=== PATIENT | female | born 1960 | race Caucasian/White ===

== ENCOUNTER 2017-01-28 19:53 | Emergency (ER) | payer OTHER ==
[2017-01-28] MEDS ORDERED: Sodium Chloride 0.9% 1000 ML 1,000 ML IV STA (20:19)
--- NOTE | 2017-01-28 20:22 | ERPHSYRPT ---
- History of Present Illness Time Seen by Provider: 01/28/17 20:08 Historian: patient, family () Exam Limitations: no limitations Patient Subjective Stated Complaint: Pt sts ate red lobster tonight, sts that approx 45 min after eating she projectile vomited and then had diarrhea. Sts pain is now diffusely cramping, rating pain 4/10. No recent sick contacts. Sts vomited x 4, diarrhea x 1. Sts feels like tongue, lips numb after epidose. Has never had this happen before. Eats seafood all the time. Triage Nursing Assessment: Pt alert, oriented, answers all questions appropriately. Skin pink, warm, dry. Ambulatory to tx room, steady gait noted. No obvious lip, facial, tongue swelling. 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 PT DENIES CHEST PAIN, DYSURIA, HEADACHE. Allergies/Adverse Reactions: Penicillins Allergy (Mild, Verified 01/28/17 20:01) Rash Quinolones Allergy (Mild, Verified 01/28/17 20:01) Rash Home Medications: Cholecalciferol (Vitamin D3) [Vitamin D3] 5,000 unit PO DAILY 01/28/17 [History] Citalopram Hydrobromide [ceLEXa] 40 mg PO DAILY 01/28/17 [History] Estradiol [Estrace] 0.5 mg PO DAILY 01/28/17 [History] Imipramine HCl [Tofranil] 50 mg PO DAILY 01/28/17 [History] Lisinopril 10 mg [Zestril 10 MG] 10 mg PO DAILY 01/28/17 [History] Omeprazole [Prilosec] 20 mg PO BID 01/28/17 [History] Immunizations Up to Date: Yes - Review of Systems Cardiac: No Chest Pain Abdominal/Gastrointestinal: Abdominal Pain, Vomiting, Diarrhea Genitourinary Symptoms: No Dysuria Neurological: Sensory Changes (TINGLING IN HANDS, FEET, LIPS.) All Other Systems: Reviewed and Negative - Past Medical History Pertinent Past Medical History: Yes Neurological History: Migraines Cardiac History: Hypertension GI Medical History: GERD Psycho-Social History: Depression - Past Surgical History Past Surgical History: Yes Female Surgical History: Hysterectomy - Social History Smoking Status: Never smoker Exposure to second hand smoke: No Drug Use: none Patient Lives Alone: No - Female History Hx Last Menstrual Period: hyst - Nursing Vital Signs Nursing Vital Signs: Initial Vital Signs Temperature 97.5 F 01/28/17 19:56 Pulse Rate 85 01/28/17 19:56 Respiratory Rate 16 01/28/17 19:56 Blood Pressure 105/70 01/28/17 19:56 O2 Sat by Pulse Oximetry 98 01/28/17 19:56 Pain Scale Pain Intensity 2 - Physical Exam General Appearance: alert Eye Exam: PERRL/EOMI Ears, Nose, Throat Exam: pharynx normal, moist mucous membranes Neck Exam: normal inspection Respiratory Exam: lungs clear Cardiovascular Exam: normal heart sounds Gastrointestinal/Abdomen Exam: soft, other (B.S. MILDLY HYPERACTIVE AND NORMOTONIC), No tenderness Back Exam: normal range of motion Extremity Exam: normal inspection, No pedal edema Neurologic Exam: alert, cooperative Skin Exam: warm, dry SpO2 Interpretation: normal SpO2: 98 Oxygen Delivery: Room Air - Course Nursing assessment & vital signs reviewed: Yes Ordered Tests: Active Orders 24 hr Category Date Time Status Clean Catch Urine Specimen STAT Care 01/28/17 20:54 Active IV Insertion STAT Care 01/28/17 20:19 Active AMYLASE Stat Lab 01/28/17 20:23 Completed CBC W DIFF Stat Lab 01/28/17 20:23 Completed CBC W DIFF Stat Lab 01/28/17 23:52 Completed CMP Stat Lab 01/28/17 20:23 Completed CMP Stat Lab 01/28/17 23:52 Completed CULTURE,URINE Stat Lab 01/28/17 20:20 Received LIPASE Stat Lab 01/28/17 20:23 Completed LIPASE Stat Lab 01/28/17 23:52 Completed Lactic Acid Stat Lab 01/29/17 00:45 Completed MAG [MAGNESIUM] Stat Lab 01/28/17 20:23 Completed Manual Differential NC Stat Lab 01/28/17 23:52 Completed UA W/ MICROSCOPIC Stat Lab 01/28/17 20:20 Completed Medication Summary Generic Name Dose Route Start Last Admin Trade Name Freq PRN Reason Stop Dose Admin Potassium Chloride/Sodium Chloride 1,000 mls @ 500 mls/hr 01/28/17 21:30 04/05 21:33 Sodium Chloride 0.9% W/ 20 Meq Kcl/Liter IV 02/27/17 21:29 500 mls/hr .Q2H JOSE JUAN Administration Discontinued Medications Generic Name Dose Route Start Last Admin Trade Name Tiburcio PRN Reason Stop Dose Admin Sodium Chloride 1,000 mls @ 999 mls/hr 01/28/17 20:19 01/28/17 20:31 Sodium Chloride 0.9% 1000 Ml IV 01/28/17 21:19 999 mls/hr .Q1H1M STA Administration Sodium Chloride Confirm 01/28/17 20:25 Sodium Chloride 0.9% 1000 Ml Administered 01/28/17 20:26 Dose 1,000 mls @ ud .ROUTE .STK-MED ONE Promethazine HCl 12.5 mg 01/28/17 20:27 01/28/17 20:31 Phenergan 25 Mg Inj IV 01/28/17 20:28 12.5 mg STAT ONE Administration Promethazine HCl Confirm 01/28/17 20:29 Phenergan 25 Mg Inj Administered 01/28/17 20:30 Dose 25 mg .ROUTE .STK-MED ONE Lab/Rad Data: Laboratory Result Diagrams 01/28/17 23:52 01/28/17 23:52 Laboratory Results 01/29/17 01/28/17 01/28/17 Range/Units 00:45 23:52 23:52 WBC 23.8 H (4.0-10.5) K/mm3 RBC 4.12 (4.1-5.4) M/mm3 Hgb 12.6 (12.0-16.0) gm/dl Hct 38.3 (35-47) % MCV 93.0 (78-100) fl MCH 30.6 (26-32) pg MCHC 32.9 (32-36) g/dl RDW 13.4 (11.5-14.0) % Plt Count 302 (150-450) K/mm3 MPV 9.9 H (6-9.5) fl Gran % (36.0-66.0) % Lymphocytes % (24.0-44.0) % Monocytes % (0.0-12.0) % Eosinophils % (0.00-5.0) % Basophils % (0.0-0.4) % Basophils # (0-0.4) Sodium 134 L (136-145) mEq/L Potassium 4.3 (3.5-5.1) mEq/L Chloride 108 H (98-107) mEq/L Carbon Dioxide 25.0 (21-32) mEq/L Anion Gap 5.6 (5-15) MEQ/L BUN 18 (9-20) mg/dL Creatinine 1.11 (0.55-1.30) mg/dl Estimated GFR 54 ML/MIN Glucose 149 H (70-110) MG/DL Lactic Acid 1.1 (0.4-2.0) Calcium 8.6 (8.5-10.1) mg/dL Magnesium (1.8-2.4) mg/dL Total Bilirubin 0.20 (0.2-1.0) mg/dL AST 16 (15-37) U/L ALT 22 (12-78) U/L Alkaline Phosphatase 108 (46-116) U/L Serum Total Protein 6.2 L (6.4-8.2) gm/dL Albumin 3.2 L (3.4-5.0) g/dL Amylase (25-115) U/L Lipase 306 (73-393) U/L Ur Collection Type Urine Color (YELLOW) Urine Appearance (CLEAR) Urine pH (5-6) Ur Specific [place] (1.005-1.025) Urine Protein (Negative) Urine Ketones (NEGATIVE) Urine Blood (0-5) Charly/ul Urine Nitrite (NEGATIVE) Urine Bilirubin (NEGATIVE) Urine Urobilinogen (0-1) mg/dL Ur Leukocyte Esterase (NEGATIVE) Urine Microscopic RBC (0-2) /HPF Ur Epithelial Cells (FEW) /HPF Urine Bacteria (NEGATIVE) /HPF Urine Glucose (NEGATIVE) mg/dL Specimen Received 01/28/17 01/28/17 01/28/17 Range/Units 20:23 20:23 20:23 WBC 14.1 H (4.0-10.5) K/mm3 RBC 4.87 (4.1-5.4) M/mm3 Hgb 14.8 (12.0-16.0) gm/dl Hct 44.9 (35-47) % MCV 92.2 (78-100) fl MCH 30.4 (26-32) pg MCHC 33.0 (32-36) g/dl RDW 13.5 (11.5-14.0) % Plt Count 411 (150-450) K/mm3 MPV 10.0 H (6-9.5) fl Gran % 63.7 (36.0-66.0) % Lymphocytes % 32.0 (24.0-44.0) % Monocytes % 2.7 (0.0-12.0) % Eosinophils % 1.3 (0.00-5.0) % Basophils % 0.3 (0.0-0.4) % Basophils # 0.04 (0-0.4) Sodium 134 L (136-145) mEq/L Potassium 3.4 L (3.5-5.1) mEq/L Chloride 102 (98-107) mEq/L Carbon Dioxide 25.9 (21-32) mEq/L Anion Gap 9.7 (5-15) MEQ/L BUN 20 (9-20) mg/dL Creatinine 1.45 H (0.55-1.30) mg/dl Estimated GFR 40 ML/MIN Glucose 144 H (70-110) MG/DL Lactic Acid (0.4-2.0) Calcium 9.8 (8.5-10.1) mg/dL Magnesium 2.3 (1.8-2.4) mg/dL Total Bilirubin 0.20 (0.2-1.0) mg/dL AST 21 (15-37) U/L ALT 31 (12-78) U/L Alkaline Phosphatase 135 H (46-116) U/L Serum Total Protein 7.6 (6.4-8.2) gm/dL Albumin 3.9 (3.4-5.0) g/dL Amylase 63 (25-115) U/L Lipase 605 H (73-393) U/L Ur Collection Type Urine Color (YELLOW) Urine Appearance (CLEAR) Urine pH (5-6) Ur Specific [place] (1.005-1.025) Urine Protein (Negative) Urine Ketones (NEGATIVE) Urine Blood (0-5) Charly/ul Urine Nitrite (NEGATIVE) Urine Bilirubin (NEGATIVE) Urine Urobilinogen (0-1) mg/dL Ur Leukocyte Esterase (NEGATIVE) Urine Microscopic RBC (0-2) /HPF Ur Epithelial Cells (FEW) /HPF Urine Bacteria (NEGATIVE) /HPF Urine Glucose (NEGATIVE) mg/dL Specimen Received 01/28/17 Range/Units 20:20 WBC (4.0-10.5) K/mm3 RBC (4.1-5.4) M/mm3 Hgb (12.0-16.0) gm/dl Hct (35-47) % MCV (78-100) fl MCH (26-32) pg MCHC (32-36) g/dl RDW (11.5-14.0) % Plt Count (150-450) K/mm3 MPV (6-9.5) fl Gran % (36.0-66.0) % Lymphocytes % (24.0-44.0) % Monocytes % (0.0-12.0) % Eosinophils % (0.00-5.0) % Basophils % (0.0-0.4) % Basophils # (0-0.4) Sodium (136-145) mEq/L Potassium (3.5-5.1) mEq/L Chloride (98-107) mEq/L Carbon Dioxide (21-32) mEq/L Anion Gap (5-15) MEQ/L BUN (9-20) mg/dL Creatinine (0.55-1.30) mg/dl Estimated GFR ML/MIN Glucose (70-110) MG/DL Lactic Acid (0.4-2.0) Calcium (8.5-10.1) mg/dL Magnesium (1.8-2.4) mg/dL Total Bilirubin (0.2-1.0) mg/dL AST (15-37) U/L ALT (12-78) U/L Alkaline Phosphatase (46-116) U/L Serum Total Protein (6.4-8.2) gm/dL Albumin (3.4-5.0) g/dL Amylase (25-115) U/L Lipase (73-393) U/L Ur Collection Type CLEAN CATCH Urine Color YELLOW (YELLOW) Urine Appearance SLIGHTLY CLOUDY (CLEAR) Urine pH 5.0 (5-6) Ur Specific [place] 1.025 (1.005-1.025) Urine Protein 100 (Negative) Urine Ketones NEGATIVE (NEGATIVE) Urine Blood 50 (0-5) Charly/ul Urine Nitrite NEGATIVE (NEGATIVE) Urine Bilirubin NEGATIVE (NEGATIVE) Urine Urobilinogen NORMAL (0-1) mg/dL Ur Leukocyte Esterase NEGATIVE (NEGATIVE) Urine Microscopic RBC 5-10 (0-2) /HPF Ur Epithelial Cells FEW (FEW) /HPF Urine Bacteria FEW (NEGATIVE) /HPF Urine Glucose NEGATIVE (NEGATIVE) mg/dL Specimen Received [id number] - Progress Progress Note: 01/29/17 01:10 PT FEELS MUCH BETTER; HAD ONE EPISODE OF DIARRHEA IN ER WHICH WAS CLEAR WITHOUT BLOOD. - Departure Time of Disposition: 01:16 Departure Disposition: Home Clinical Impression: VOMITING, DIARRHEA, ABDOMINAL PAIN, HYPOKALEMIA - RESOLVED IN ER, ELEVATED CREATININE - RESOLVED IN ER, ELEVATED LIPASE - RESOLVED IN ER Condition: Stable Critical Care Time: No Referrals: MELL BENTON [Primary Care Provider] - Instructions: Abdominal Pain-Adult, Vomiting -- Adult, Diarrhea and Traveler's Diarrhea -- Adult Additional Instructions: FOLLOW UP WITH PRIVATE DOCTOR TOMORROW AND GET A REPEAT CBC. START A CLEAR LIQUID DIET FOR 24 HOURS FOLLOWED BY A SOFT BLAND DIET. NO MILK OR JUICE FOR 2 DAYS. Prescriptions: Promethazine HCl 25 mg [Phenergan 25 mg] 25 mg PO Q4H PRN PRN #14 tablet PRN Reason: Nausea/Vomiting
[2017-01-28] MEDS ORDERED: Sodium Chloride 0.9% 1000 ML 1,000 ML ONE (20:25)
[2017-01-28 20:27] LABS: BASOPHIL % 0.3 % (0.0-0.4); Eosinophil % 1.3 % (0.00-5.0); Granulocytes % 63.7 % (36.0-66.0); Mean Cell Volume 92.2 fl (78-100); Mean Corpuscular Hemoglobin 30.4 pg (26-32); Monocytes % 2.7 % (0.0-12.0); Platelet Count 411 K/mm3 (150-450); Red Blood Count 4.87 M/mm3 (4.1-5.4); Red Cell Distribution Width 13.5 % (11.5-14.0); White Blood Count 14.1 K/mm3 (4.0-10.5)
[2017-01-28] MEDS ORDERED: Phenergan 25 MG INJ IV ONE (20:27)
[2017-01-28] MEDS ORDERED: Phenergan 25 MG INJ ONE (20:29)
[2017-01-28 20:59] LABS: ALBUMIN 3.9 g/dL (3.4-5.0); ANION GAP 9.7 MEQ/L (5-15); BILIRUBIN,TOTAL 0.2 mg/dL (0.2-1.0); Carbon Dioxide 25.9 mEq/L (21-32); Potassium 3.4 mEq/L (3.5-5.1); Total Protein 7.6 gm/dL (6.4-8.2)
[2017-01-28 21:30] LABS: Collection Type CLEAN CATCH; Leukocyte Esterase NEGATIVE (NEGATIVE)
[2017-01-28] MEDS ORDERED: Sodium Chloride 0.9% W/ 20 mEq KCl/LITER 1,000 ML IV SCH (21:30)
[2017-01-28 21:31] LABS: Bilirubin NEGATIVE (NEGATIVE); Blood 50 Ery/ul (0-5); COMPLETE URINE MICROSCOPIC? YES; Glucose NEGATIVE (NEGATIVE)
[2017-01-28 21:32] LABS: ADD URINE CULTURE? YES (NO); Bacteria FEW /HPF (NEGATIVE); Epithelial Cells FEW /HPF (FEW)
[2017-01-28] MEDS ORDERED: Sodium Chloride 0.9% W/ 20 mEq KCl/LITER 1,000 ML IV ONE (21:33)
[2017-01-28 23:56] LABS: Mean Corpuscular Hemoglobin 30.6 pg (26-32); Mean Platelet Volume 9.9 fl (6-9.5); Platelet Count 302 K/mm3 (150-450); Red Blood Count 4.12 M/mm3 (4.1-5.4); Red Cell Distribution Width 13.4 % (11.5-14.0); White Blood Count 23.8 K/mm3 (4.0-10.5)
[2017-01-29 00:16] LABS: ALBUMIN 3.2 g/dL (3.4-5.0); ANION GAP 5.6 MEQ/L (5-15); BILIRUBIN,TOTAL 0.2 mg/dL (0.2-1.0); Potassium 4.3 mEq/L (3.5-5.1); Total Protein 6.2 gm/dL (6.4-8.2)
[2017-01-29 01:29] VITALS: BP 131/91; PULSE 88; O2SAT 99
[2017-01-29 03:27] LABS: Total Cells Counted 100
[2017-01-29 03:28] LABS: Platelet Estimate NORMAL (NORMAL)
== END 2017-01-29 01:29 | disposition home or self-care (01) ==
LOC: ED 19:53
DX: R11.10 Vomiting, unspecified (principal); R19.7 Diarrhea, unspecified; R10.9 Unspecified abdominal pain; R74.8 Abnormal levels of other serum enzymes; E87.6 Hypokalemia; R94.4 Abnormal results of kidney function studies
CPT/HCPCS: 36000; 36415; 80053; 81000; 82150; 83605; 83690; 83735; 85025; 87086; 96360; 96361; 96365; 96366; 96374; 99284; J2550

== ENCOUNTER 2021-08-15 14:58 | Observation (INO) | payer OTHER ==
--- NOTE | 2021-08-15 15:27 | ERPHSYRPT ---
- History of Present Illness Time Seen by Provider: 08/15/21 15:10 Source: patient Exam Limitations: no limitations Patient Subjective Stated Complaint: " I've been so cold and I've been having upper back pain that radiates down both arms". Triage Nursing Assessment: Pt presents to ER with complaints of severe upper back pains that began yesterday. She states that pain has been constant and aching in nature. Pt skin is pink, warm, and dry. Pt states she has been really cold and having chills. Pt states pain is 8/10 scale. Pt states pain radiates up back of her neck and down both upper arms. Pt denies abdominal pain. Respirations are unlabored at this time. Pt is alert and oriented x3. Ambulates with slow but steady gait. Physician History: Patient is a 60-year-old female presents to emergency department for evaluation of upper back pain and feeling cold. Patient symptoms started yesterday. Patient states she carried some 5 bags of groceries before her upper back began to hurt. Patient states her upper back hurts when she grabbed onto her car steering wheel. Patient also feels cold. Patient current temperature is 99. No chest pain. Back pain tends to radiate to her arms. No nausea vomiting or diaphoresis. Patient states she feels as though her breathing is labored however patient speaking in complete sentences. She is not tachypneic and no obvious use of accessory muscles of respiration. Patient otherwise feels well. She voices no other complaints or concerns at this time. Timing/Duration: yesterday Severity: moderate (Pain rated 8 out of 10.) Modifying Factors: Improves With: other (Lifting) Associated Symptoms: denies symptoms (No associated nausea vomiting or diaphoresis.), No nausea, No vomiting, No diaphoresis, No chest pain, No fever, No syncope, No weakness Allergies/Adverse Reactions: ciprofloxacin [From Cipro] Allergy (Intermediate, Verified 08/15/21 15:10) Hives Penicillins Allergy (Mild, Verified 08/15/21 15:09) Rash Quinolones Allergy (Mild, Verified 08/15/21 15:09) Rash Home Medications: Cholecalciferol (Vitamin D3) [Vitamin D3] 5,000 unit PO DAILY 01/28/17 [History] Citalopram Hydrobromide [ceLEXa] 40 mg PO DAILY 01/28/17 [History] Imipramine HCl [Tofranil] 50 mg PO DAILY 01/28/17 [History] Lisinopril 10 mg [Zestril 10 MG] 20 mg PO DAILY 01/28/17 [History] Omeprazole [Prilosec] 20 mg PO DAILY 01/28/17 [History] Hx Tetanus, Diphtheria Vaccination/Date Given: Yes Hx Influenza Vaccination/Date Given: Yes Hx Pneumococcal Vaccination/Date Given: No Immunizations Up to Date: Yes Travel Risk - International Travel Have you traveled outside of the country in past 3 weeks: No - Coronavirus Screening Are you exhibiting any of the following symptoms?: No Close contact with a COVID-19 positive Pt in past 14-21 Days: No - Vaccine Status Have you recieved a Covid-19 vaccination: Yes Silk Screen Etcher: Moderna - Vaccination Dates Date of 2cond Vaccination (if applicable): 2020 - Review of Systems Constitutional: No Symptoms, No Fever, No Chills Eyes: No Symptoms Ears, Nose, & Throat: No Symptoms Respiratory: No Symptoms, No Cough, No Dyspnea Cardiac: No Symptoms, No Chest Pain, No Edema, No Syncope Abdominal/Gastrointestinal: No Symptoms, No Abdominal Pain, No Nausea, No Vomiting, No Diarrhea Genitourinary Symptoms: No Symptoms, No Dysuria Musculoskeletal: No Symptoms, No Back Pain, No Neck Pain Skin: No Symptoms, No Rash Neurological: No Symptoms, No Dizziness, No Focal Weakness, No Sensory Changes Psychological: No Symptoms Endocrine: No Symptoms Hematologic/Lymphatic: No Symptoms Immunological/Allergic: No Symptoms All Other Systems: Reviewed and Negative - Past Medical History Pertinent Past Medical History: Yes Neurological History: Migraines Cardiac History: Hypertension GI Medical History: GERD Psycho-Social History: Depression - Past Surgical History Past Surgical History: Yes Musculoskeletal: Orthopedic Surgery Female Surgical History: Hysterectomy Other Surgical History: left shoulder - Social History Smoking Status: Never smoker Exposure to second hand smoke: No Drug Use: none Patient Lives Alone: No - Nursing Vital Signs Nursing Vital Signs: Initial Vital Signs Temperature 99 F 08/15/21 15:03 Pulse Rate 105 H 08/15/21 15:03 Respiratory Rate 18 08/15/21 15:03 Blood Pressure 180/100 08/15/21 15:03 O2 Sat by Pulse Oximetry 97 08/15/21 15:03 Pain Scale Pain Intensity [] 8 Pain Intensity 6 - Physical Exam General Appearance: no apparent distress, alert Eye Exam: PERRL/EOMI, eyes nml inspection Ears, Nose, Throat Exam: normal ENT inspection, TMs normal, pharynx normal, moist mucous membranes Neck Exam: normal inspection, non-tender, supple, full range of motion Respiratory Exam: normal breath sounds, lungs clear, airway intact, No respiratory distress Cardiovascular Exam: regular rate/rhythm, normal heart sounds, normal peripheral pulses Gastrointestinal/Abdomen Exam: soft, normal bowel sounds, No tenderness, No mass Back Exam: normal inspection, normal range of motion, No CVA tenderness, No vertebral tenderness Extremity Exam: normal inspection, normal range of motion, pelvis stable Neurologic Exam: alert, oriented x 3, cooperative, normal mood/affect, nml cerebellar function, nml station & gait, sensation nml, No motor deficits Skin Exam: normal color, warm, dry, No rash Lymphatic Exam: No adenopathy SpO2 Interpretation: normal SpO2: 97 O2 Delivery: Room Air - Course Nursing assessment & vital signs reviewed: Yes EKG Interpreted by Me: RATE (100), Sinus Tach, NORMAL AXIS, NORMAL INTERVALS - CT Exams Chest CT Interpretation: Tele-radiologist Report (Rt. upper lobe non-obstructing PE) Ordered Tests: Active Orders 24 hr Category Date Time Status Multimedia Programmer STAT Care 08/15/21 15:20 Active EKG-ER Only STAT Care 08/15/21 15:19 Active IV Insertion STAT Care 08/15/21 15:19 Active CHEST WITH CONTRAST [CT] Stat Exams 08/15/21 15:59 Completed CBC W DIFF Stat Lab 08/15/21 15:19 Completed CMP Stat Lab 08/15/21 15:19 Completed D-DIMER QUANTITATIVE Stat Lab 08/15/21 15:19 Completed NT PRO BNP Stat Lab 08/15/21 15:19 Completed TROPONIN Q3H Lab 08/15/21 15:30 Completed TROPONIN Q3H Lab 08/15/21 18:27 Completed TROPONIN Q3H Lab 08/15/21 21:30 Ordered TROPONIN Q3H Lab 08/16/21 00:30 Ordered TROPONIN Q3H Lab 08/16/21 03:30 Ordered TSH, 3RD Generation Stat Lab 08/15/21 15:19 Completed Transfer Order Routine Transfer 08/15/21 Ordered Medication Summary Generic Name Dose Route Start Last Admin Trade Name Freq PRN Reason Stop Dose Admin Sodium Chloride 1,000 mls @ 100 mls/hr 08/15/21 20:00 Sodium Chloride 0.9% 1000 Ml IV 09/14/21 19:59 .Q10H JOSE JUAN Discontinued Medications Generic Name Dose Route Start Last Admin Trade Name Freq PRN Reason Stop Dose Admin Acetaminophen 975 mg 08/15/21 19:00 08/15/21 19:22 Acetaminophen 325 Mg Tablet PO 08/15/21 19:01 975 mg STAT ONE Administration Acetaminophen Confirm 08/15/21 19:21 Acetaminophen 325 Mg Tablet Administered 08/15/21 19:22 Dose 975 mg .ROUTE .STK-MED ONE Enoxaparin Sodium 90 mg 08/15/21 17:40 08/15/21 17:52 Enoxaparin Sodium 80 Mg/0.8 Ml Syringe SQ 08/15/21 17:41 Not Given STAT ONE Enoxaparin Sodium 90 mg 08/15/21 17:51 08/15/21 17:53 Enoxaparin Sodium 120 Mg/0.8 Ml Syringe SQ 08/15/21 17:52 90 mg STAT STA Administration Enoxaparin Sodium Confirm 08/15/21 17:52 Enoxaparin Sodium 120 Mg/0.8 Ml Syringe Administered 08/15/21 17:53 Dose 120 mg SQ .STK-MED ONE Ketorolac Tromethamine 30 mg 08/15/21 16:09 08/15/21 16:12 Ketorolac Tromethamine 30 Mg/Ml Inj IV 08/15/21 16:10 30 mg STAT ONE Administration Ketorolac Tromethamine Confirm 08/15/21 16:10 Ketorolac Tromethamine 30 Mg/Ml Inj Administered 08/15/21 16:11 Dose 30 mg .ROUTE .STK-MED ONE Lab/Rad Data: Laboratory Result Diagrams 08/15/21 15:19 08/15/21 15:19 Laboratory Results 08/15/21 08/15/21 08/15/21 Range/Units 18:27 17:51 15:30 WBC (4.0-10.5) K/mm3 RBC (4.1-5.4) M/mm3 Hgb (12.0-16.0) gm/dl Hct (35-47) % MCV (78-100) fl MCH (26-32) pg MCHC (32-36) g/dl RDW (11.5-14.0) % Plt Count (150-450) K/mm3 MPV (7.5-11.0) fl Gran % (36.0-66.0) % Eos # (Auto) (0-0.5) Absolute Lymphs (auto) (1.0-4.6) Absolute Monos (auto) (0.0-1.3) Lymphocytes % (24.0-44.0) % Monocytes % (0.0-12.0) % Eosinophils % (0.00-5.0) % Basophils % (0.0-0.4) % Absolute Granulocytes (1.4-6.9) Basophils # (0-0.4) D-Dimer (215-500) ng/mL Sodium (137-145) mmol/L Potassium (3.5-5.1) mmol/L Chloride (98-107) mmol/L Carbon Dioxide (22-30) mmol/L Anion Gap (5-15) MEQ/L BUN (7-17) mg/dL Creatinine (0.52-1.04) mg/dL Estimated GFR ML/MIN Glucose (74-106) mg/dL Calcium (8.4-10.2) mg/dL Total Bilirubin (0.2-1.3) mg/dL AST (14-36) U/L ALT (0-35) U/L Alkaline Phosphatase (38-126) U/L Troponin I < 0.012 < 0.012 (0.000-0.034) ng/mL NT-Pro-B Natriuret Pep (0-900) pg/mL Serum Total Protein (6.3-8.2) g/dL Albumin (3.5-5.0) g/dL TSH 3rd Generation (0.47-4.68) mIU/L Influenza Type A Ag NEGATIVE (NEGATIVE) Influenza Type B Ag NEGATIVE (NEGATIVE) RSV (PCR) NEGATIVE (Negative) SARS-CoV-2 (PCR) NEGATIVE (NEGATIVE) 08/15/21 08/15/21 08/15/21 Range/Units 15:19 15:19 15:19 WBC 11.0 H (4.0-10.5) K/mm3 RBC 4.23 (4.1-5.4) M/mm3 Hgb 11.9 L (12.0-16.0) gm/dl Hct 37.7 (35-47) % MCV 89.1 (78-100) fl MCH 28.1 (26-32) pg MCHC 31.6 L (32-36) g/dl RDW 15.2 H (11.5-14.0) % Plt Count 284 (150-450) K/mm3 MPV 9.5 (7.5-11.0) fl Gran % 88.6 H (36.0-66.0) % Eos # (Auto) 0.10 (0-0.5) Absolute Lymphs (auto) 0.83 L (1.0-4.6) Absolute Monos (auto) 0.31 (0.0-1.3) Lymphocytes % 7.5 L (24.0-44.0) % Monocytes % 2.8 (0.0-12.0) % Eosinophils % 0.9 (0.00-5.0) % Basophils % 0.2 (0.0-0.4) % Absolute Granulocytes 9.76 H (1.4-6.9) Basophils # 0.02 (0-0.4) D-Dimer 4299 H* (215-500) ng/mL Sodium 135 L (137-145) mmol/L Potassium 4.3 (3.5-5.1) mmol/L Chloride 99 (98-107) mmol/L Carbon Dioxide 28 (22-30) mmol/L Anion Gap 12.8 (5-15) MEQ/L BUN 19 H (7-17) mg/dL Creatinine 1.03 (0.52-1.04) mg/dL Estimated GFR 58.3 ML/MIN Glucose 146 H (74-106) mg/dL Calcium 9.7 (8.4-10.2) mg/dL Total Bilirubin 0.50 (0.2-1.3) mg/dL AST 22 (14-36) U/L ALT 19 (0-35) U/L Alkaline Phosphatase 131 H (38-126) U/L Troponin I (0.000-0.034) ng/mL NT-Pro-B Natriuret Pep 279 (0-900) pg/mL Serum Total Protein 6.9 (6.3-8.2) g/dL Albumin 4.1 (3.5-5.0) g/dL TSH 3rd Generation 0.963 (0.47-4.68) mIU/L Influenza Type A Ag (NEGATIVE) Influenza Type B Ag (NEGATIVE) RSV (PCR) (Negative) SARS-CoV-2 (PCR) (NEGATIVE) - Progress Progress: improved Progress Note: PE observed on CT scan chest. Case discussed with Dr. Phelps who accepts admission to observation. Covid test pending. 08/15/21 17:41 Covid test negative. Patient agrees to admission [facility] for further evaluation and treatment. Lovenox administered. Portions of this note were created with voice recognition technology. There may be grammatical, spelling, punctuation or sound alike errors 08/15/21 19:[address] Huang Will see patient in: hospital (observation) Counseled pt/family regarding: lab results, diagnosis, rad results - Departure Departure Disposition: Observation Clinical Impression: Right upper lobe pulmonary embolus, Hiatal hernia, Fatty liver Condition: Stable Critical Care Time: No Referrals: MELL FISH [Primary Care Provider] - Follow up/PCP as directed
[2021-08-15 15:39] LABS: Absolute Neutrophil Ct (ANC) 9.76 (1.4-6.9); Basophil (Absolute #) 0.02 (0-0.4); Eosinophil % 0.9 % (0.00-5.0); Hematocrit 37.7 % (35-47); Hemoglobin 11.9 gm/dl (12.0-16.0); Lymphocyte (Absolute #) 0.83 (1.0-4.6); Lymphocytes % 7.5 % (24.0-44.0); Mean Cell Volume 89.1 fl (78-100); Mean Corpuscular Hemoglobin 28.1 pg (26-32); Mean Corpuscular Hgb Concent. 31.6 g/dl (32-36); Mean Platelet Volume 9.5 fl (7.5-11.0); Monocyte (Absolute #) 0.31 (0.0-1.3); Monocytes % 2.8 % (0.0-12.0); Neutrophil % 88.6 % (36.0-66.0); Platelet Count 284 K/mm3 (150-450); Red Blood Count 4.23 M/mm3 (4.1-5.4); Red Cell Distribution Width 15.2 % (11.5-14.0)
[2021-08-15] MEDS ORDERED: TORAdol 30 mg Injection IV ONE (16:09)
[2021-08-15] MEDS ORDERED: TORAdol 30 mg Injection ONE (16:10)
[2021-08-15 16:29] LABS: ALBUMIN 4.1 g/dL (3.5-5.0); ANION GAP 12.8 MEQ/L (5-15); BILIRUBIN,TOTAL 0.5 mg/dL (0.2-1.3); Calcium 9.7 mg/dL (8.4-10.2); Creatinine 1 1.03 mg/dL (0.52-1.04); EST GLOMERULAR FILTRATION RATE 58.3 ML/MIN; Potassium 4.3 mmol/L (3.5-5.1); TSH, 3RD Generation 0.963 mIU/L (0.47-4.68); Total Protein 6.9 g/dL (6.3-8.2)
--- NOTE | 2021-08-15 17:09 | XRAY ---
Indication: Back pain, short of breath, and chills. Elevated d-dimer. Multiple contiguous axial images obtained through the chest using 80 cc Isovue 370 contrast and PE protocol. Comparison: None There is good opacification of the pulmonary arteries to include the lobar and segmental branches. Tiny nonoccluding pulmonary emboli in the right upper lobe anterior subsegmental branch. Heart not enlarged. Aorta is normal in course and caliber. No pathologic mediastinal/hilar lymphadenopathy. Moderate sized hiatal hernia with partial intrathoracic stomach. Lungs demonstrate minimal bilateral dependent atelectasis. No suspicious pulmonary mass, infiltrate, effusion, or pneumothorax. Bony thorax intact with partially visualized proximal left humerus orthopedic hardware. Limited upper abdomen demonstrates fatty liver. Impression: 1. Tiny right upper lobe segmental nonoccluding pulmonary emboli. 2. Hiatal hernia with partial intrathoracic stomach. 3. Fatty liver.
[2021-08-15] MEDS ORDERED: ENOXAPARIN SODIUM SQ ONE ×2 (17:40→17:52)
[2021-08-15] MEDS ORDERED: ENOXAPARIN SODIUM SQ STA (17:51)
[2021-08-15 18:31] LABS: INFLUENZA A NEGATIVE (NEGATIVE); INFLUENZA B NEGATIVE (NEGATIVE); RESPIRATORY SYNCTIAL VIRUS NEGATIVE (Negative); SARS-CoV-2 Xpert Express NEGATIVE (NEGATIVE)
[2021-08-15] MEDS ORDERED: TYLENOL 325 MG PO ONE (19:00)
[2021-08-15] MEDS ORDERED: TYLENOL 325 MG ONE (19:21)
[2021-08-15] MEDS ORDERED: Sodium Chloride 0.9% 1000 ML 1,000 ML IV SCH (20:00)
[2021-08-15] MEDS ORDERED: MORPHINE SULFATE 2 MG INJ IV PRN (20:26)
[2021-08-15] MEDS: Sodium Chloride 0.9% 1000 ML 1,000 ML IV SCH (21:02)
[2021-08-15] MEDS ORDERED: PHENERGAN 25 MG PO PRN (22:00)
[2021-08-15] MEDS ORDERED: Protonix 40MG Tablet ONE (22:35)
[2021-08-15] MEDS ORDERED: Bystolic 5 MG ONE (22:36)
[2021-08-16 04:11] LABS: Hematocrit 36.8 % (35-47); Hemoglobin 11.4 gm/dl (12.0-16.0); Mean Cell Volume 90.9 fl (78-100); Mean Corpuscular Hemoglobin 28.1 pg (26-32); Platelet Count 284 K/mm3 (150-450); Red Blood Count 4.05 M/mm3 (4.1-5.4); Red Cell Distribution Width 15.5 % (11.5-14.0); White Blood Count 15.5 K/mm3 (4.0-10.5)
[2021-08-16 04:28] LABS: ALBUMIN 3.8 g/dL (3.5-5.0); ANION GAP 14.1 MEQ/L (5-15); BILIRUBIN,TOTAL 0.5 mg/dL (0.2-1.3); Calcium 9.2 mg/dL (8.4-10.2); Creatinine 1 1.03 mg/dL (0.52-1.04); EST GLOMERULAR FILTRATION RATE 58.3 ML/MIN; Total Protein 6.7 g/dL (6.3-8.2)
[2021-08-16 04:38] LABS: ANISOCYTOSIS 1+; BAND 1 % (0.0-2.0); Eosinophil 1 % (0.00-3.0); Lymphocytes 13 % (24-44); Monocyte 7 % (0.0-12.0); Neutrophils 78 % (36.0-66.0); Platelet Estimate NORMAL (NORMAL); Total Cells Counted 100
[2021-08-16] MEDS: Sodium Chloride 0.9% 1000 ML 1,000 ML IV SCH (06:43)
[2021-08-16] MEDS ORDERED: MEDICATION INTERVENTION PO SCH (07:45)
[2021-08-16 07:58] VITALS: BP 121/65; PULSE 92; O2SAT 94
[2021-08-16] MEDS ORDERED: Cyclobenzaprine 10 MG PO PRN (08:47)
--- NOTE | 2021-08-16 08:52 | PCM.SSS ---
History of Present Illness - Chief Complaint Chief Complaint: Pulmonary embolus History of Present Illness: is a 60 year old female pt of mine from [facility] with PMHx GERD, anxiety, HTN, and urge incontinence who was admitted through ER with a pulmonary embolism. She has been feeling poorly x 2 weeks, very tired with some SOB, then yesterday at 1 am she had headache and chills. She took 2 aleve and around 5:30 she started feeling better. Ran some errands (went to the eye doctor and short grocery trip) then started having sx again. Was difficult to carry her groceries. C/o pain between the shoulder blades radiating out, -02/26 (this morning the back is sore, like she worked out). This morning she has GEORGE 8/10, bifrontal. Denies any recent travel. Denies having had Covid. - Review of Systems Constitutional: Chills, Fatigue Ears, Nose, & Throat: Nose Congestion (chronic) Abdominal/Gastrointestinal: Nausea (chronic, intermittent), Constipation (last week, which is unusual for her.) Genitourinary Symptoms: Dysuria (little urinary "irritation") Neurological: Dizziness (occasional lightheadedness, no presyncope or syncope) Psychological: Anxiety, No Depression Medications & Allergies Home Medications: Home Medication List Cholecalciferol (Vitamin D3) [Vitamin D3] 5,000 unit PO DAILY 01/28/17 [History Confirmed 08/15/21] Citalopram Hydrobromide [ceLEXa] 40 mg PO DAILY 01/28/17 [History Confirmed 08/15/21] Imipramine HCl [Tofranil] 50 mg PO QHS 01/28/17 [History Confirmed 08/15/21] Omeprazole [Prilosec] 20 mg PO QHS 01/28/17 [History Confirmed 08/15/21] Promethazine HCl 25 mg [Phenergan 25 mg] 25 mg PO Q4H PRN PRN #14 tablet 01/29/17 [Rx Confirmed 08/15/21] Losartan Potassium 50 mg [Cozaar 50 MG] 50 mg PO DAILY 08/15/21 [History Confirmed 08/15/21] Nebivolol HCl 5 MG [Bystolic 5 MG] 5 mg PO QHS 08/15/21 [History Confirmed 08/15/21] Apixaban [Eliquis 5 mg Tablet] 10 mg PO BID #13 tablet 08/16/21 [Rx] Cefdinir [Omnicef 300 mg] 300 mg PO BID #18 08/16/21 [Rx] Cyclobenzaprine HCl 10 mg [Cyclobenzaprine 10 MG] 10 mg PO TID PRN PRN #15 tablet 08/16/21 [Rx] Allergies/Adverse Reactions: Allergies Allergy/AdvReac Type Severity Reaction Status Date / Time ciprofloxacin [From Cipro] Allergy Intermediate Hives Verified 08/15/21 20:30 Penicillins Allergy Mild Rash Verified 08/15/21 20:30 Quinolones Allergy Mild Rash Verified 08/15/21 20:30 - Past Medical History Past Medical History: Yes Neurological History: Migraines ENT History: No Pertinent History Cardiac History: Hypertension Respiratory History: No Pertinent History Endocrine Medical History: No Pertinent History Musculoskelatal History: No Pertinent History GI Medical History: GERD History: No Pertinent History Pyscho-Social History: Depression Reproductive Disorders: No Pertinent History - Female History Are you now?: No - Past Surgical History Past Surgical History: Yes Neuro Surgical History: No Pertinent History Cardiac History: No Pertinent History Respiratory Surgery: No Pertinent History GI Surgical History: Hernia Repair Genitourinary Surgical Hx: No Pertinent History Musculskeletal Surgical Hx: Orthopedic Surgery Female Surgical History: Hysterectomy, Tubal Ligation Other Surgical History: left shoulder repair - Social History Smoking Status: Never smoker Exposure to second hand smoke: No Alcohol: Rarely Drug Use: none - Physical Exam Vital Signs: Vital Signs - 24 hr Temp Pulse Resp BP BP Pulse Ox 08/16/21 08:00 19 08/16/21 07:57 98.4 F 92 H 19 121/65 94 L 08/16/21 06:43 95 08/16/21 04:00 99.1 F 87 17 117/59 95 08/16/21 00:00 17 08/15/21 23:43 97.9 F 77 18 108/53 94 L 08/15/21 22:29 93 L 08/15/21 21:45 92 L 08/15/21 20:42 97.9 F 83 18 109/56 95 08/15/21 20:02 97 08/15/21 19:20 94 H 18 114/62 99 08/15/21 18:12 92 H 21 135/69 94 L 08/15/21 17:07 100 H 18 154/73 94 L 08/15/21 16:00 103 H 18 124/82 08/15/21 15:03 99 F 105 H 18 180/100 97 General Appearance: no apparent distress, alert Neurologic Exam: oriented x 3, cooperative, normal mood/affect Eye Exam: eyes nml inspection, No scleral icterus Ears, Nose, Throat Exam: moist mucous membranes Neck Exam: normal inspection, non-tender, No lymphadenopathy, No thyromegaly Respiratory Exam: normal breath sounds, lungs clear, No crackles/rales, No rhonchi, No wheezing Cardiovascular Exam: regular rate/rhythm, normal heart sounds, No murmur Gastrointestinal/Abdomen Exam: soft, normal bowel sounds, No tenderness, No distention, No mass, No guarding, No rebound Back Exam: normal inspection, other (mild ttp thoracic spine/paraspinal areas) Extremity Exam: normal inspection, No pedal edema, No swelling Skin Exam: normal color, warm, dry, No rash Results - Labs Lab/Micro Results: Lab Results-Last 24 Hours 08/15/21 08/15/21 08/15/21 Range/Units 15:19 15:19 15:19 WBC 11.0 H (4.0-10.5) K/mm3 RBC 4.23 (4.1-5.4) M/mm3 Hgb 11.9 L (12.0-16.0) gm/dl Hct 37.7 (35-47) % MCV 89.1 (78-100) fl MCH 28.1 (26-32) pg MCHC 31.6 L (32-36) g/dl RDW 15.2 H (11.5-14.0) % Plt Count 284 (150-450) K/mm3 MPV 9.5 (7.5-11.0) fl Gran % 88.6 H (36.0-66.0) % Eos # (Auto) 0.10 (0-0.5) Absolute Lymphs (auto) 0.83 L (1.0-4.6) Absolute Monos (auto) 0.31 (0.0-1.3) Lymphocytes % 7.5 L (24.0-44.0) % Monocytes % 2.8 (0.0-12.0) % Eosinophils % 0.9 (0.00-5.0) % Basophils % 0.2 (0.0-0.4) % Absolute Granulocytes 9.76 H (1.4-6.9) Segmented Neutrophils (36.0-66.0) % Band Neutrophils (0.0-2.0) % Lymphocytes (Manual) (24-44) % Monocytes (Manual) (0.0-12.0) % Eosinophils (Manual) (0.00-3.0) % Basophils # 0.02 (0-0.4) Platelet Estimate (NORMAL) RBC Morphology Anisocytosis D-Dimer 4299 H* (215-500) ng/mL Sodium 135 L (137-145) mmol/L Potassium 4.3 (3.5-5.1) mmol/L Chloride 99 (98-107) mmol/L Carbon Dioxide 28 (22-30) mmol/L Anion Gap 12.8 (5-15) MEQ/L BUN 19 H (7-17) mg/dL Creatinine 1.03 (0.52-1.04) mg/dL Estimated GFR 58.3 ML/MIN Glucose 146 H (74-106) mg/dL Calcium 9.7 (8.4-10.2) mg/dL Total Bilirubin 0.50 (0.2-1.3) mg/dL AST 22 (14-36) U/L ALT 19 (0-35) U/L Alkaline Phosphatase 131 H (38-126) U/L Troponin I (0.000-0.034) ng/mL NT-Pro-B Natriuret Pep 279 (0-900) pg/mL Serum Total Protein 6.9 (6.3-8.2) g/dL Albumin 4.1 (3.5-5.0) g/dL TSH 3rd Generation 0.963 (0.47-4.68) mIU/L Influenza Type A Ag (NEGATIVE) Influenza Type B Ag (NEGATIVE) RSV (PCR) (Negative) SARS-CoV-2 (PCR) (NEGATIVE) 08/15/21 08/15/21 08/15/21 Range/Units 15:30 17:51 18:27 WBC (4.0-10.5) K/mm3 RBC (4.1-5.4) M/mm3 Hgb (12.0-16.0) gm/dl Hct (35-47) % MCV (78-100) fl MCH (26-32) pg MCHC (32-36) g/dl RDW (11.5-14.0) % Plt Count (150-450) K/mm3 MPV (7.5-11.0) fl Gran % (36.0-66.0) % Eos # (Auto) (0-0.5) Absolute Lymphs (auto) (1.0-4.6) Absolute Monos (auto) (0.0-1.3) Lymphocytes % (24.0-44.0) % Monocytes % (0.0-12.0) % Eosinophils % (0.00-5.0) % Basophils % (0.0-0.4) % Absolute Granulocytes (1.4-6.9) Segmented Neutrophils (36.0-66.0) % Band Neutrophils (0.0-2.0) % Lymphocytes (Manual) (24-44) % Monocytes (Manual) (0.0-12.0) % Eosinophils (Manual) (0.00-3.0) % Basophils # (0-0.4) Platelet Estimate (NORMAL) RBC Morphology Anisocytosis D-Dimer (215-500) ng/mL Sodium (137-145) mmol/L Potassium (3.5-5.1) mmol/L Chloride (98-107) mmol/L Carbon Dioxide (22-30) mmol/L Anion Gap (5-15) MEQ/L BUN (7-17) mg/dL Creatinine (0.52-1.04) mg/dL Estimated GFR ML/MIN Glucose (74-106) mg/dL Calcium (8.4-10.2) mg/dL Total Bilirubin (0.2-1.3) mg/dL AST (14-36) U/L ALT (0-35) U/L Alkaline Phosphatase (38-126) U/L Troponin I < 0.012 < 0.012 (0.000-0.034) ng/mL NT-Pro-B Natriuret Pep (0-900) pg/mL Serum Total Protein (6.3-8.2) g/dL Albumin (3.5-5.0) g/dL TSH 3rd Generation (0.47-4.68) mIU/L Influenza Type A Ag NEGATIVE (NEGATIVE) Influenza Type B Ag NEGATIVE (NEGATIVE) RSV (PCR) NEGATIVE (Negative) SARS-CoV-2 (PCR) NEGATIVE (NEGATIVE) 08/15/21 08/16/21 08/16/21 Range/Units 21:20 01:33 04:02 WBC (4.0-10.5) K/mm3 RBC (4.1-5.4) M/mm3 Hgb (12.0-16.0) gm/dl Hct (35-47) % MCV (78-100) fl MCH (26-32) pg MCHC (32-36) g/dl RDW (11.5-14.0) % Plt Count (150-450) K/mm3 MPV (7.5-11.0) fl Gran % (36.0-66.0) % Eos # (Auto) (0-0.5) Absolute Lymphs (auto) (1.0-4.6) Absolute Monos (auto) (0.0-1.3) Lymphocytes % (24.0-44.0) % Monocytes % (0.0-12.0) % Eosinophils % (0.00-5.0) % Basophils % (0.0-0.4) % Absolute Granulocytes (1.4-6.9) Segmented Neutrophils (36.0-66.0) % Band Neutrophils (0.0-2.0) % Lymphocytes (Manual) (24-44) % Monocytes (Manual) (0.0-12.0) % Eosinophils (Manual) (0.00-3.0) % Basophils # (0-0.4) Platelet Estimate (NORMAL) RBC Morphology Anisocytosis D-Dimer (215-500) ng/mL Sodium (137-145) mmol/L Potassium (3.5-5.1) mmol/L Chloride (98-107) mmol/L Carbon Dioxide (22-30) mmol/L Anion Gap (5-15) MEQ/L BUN (7-17) mg/dL Creatinine (0.52-1.04) mg/dL Estimated GFR ML/MIN Glucose (74-106) mg/dL Calcium (8.4-10.2) mg/dL Total Bilirubin (0.2-1.3) mg/dL AST (14-36) U/L ALT (0-35) U/L Alkaline Phosphatase (38-126) U/L Troponin I < 0.012 < 0.012 < 0.012 (0.000-0.034) ng/mL NT-Pro-B Natriuret Pep (0-900) pg/mL Serum Total Protein (6.3-8.2) g/dL Albumin (3.5-5.0) g/dL TSH 3rd Generation (0.47-4.68) mIU/L Influenza Type A Ag (NEGATIVE) Influenza Type B Ag (NEGATIVE) RSV (PCR) (Negative) SARS-CoV-2 (PCR) (NEGATIVE) 08/16/21 08/16/21 Range/Units 04:02 04:02 WBC 15.5 H (4.0-10.5) K/mm3 RBC 4.05 L (4.1-5.4) M/mm3 Hgb 11.4 L (12.0-16.0) gm/dl Hct 36.8 (35-47) % MCV 90.9 (78-100) fl MCH 28.1 (26-32) pg MCHC 31.0 L (32-36) g/dl RDW 15.5 H (11.5-14.0) % Plt Count 284 (150-450) K/mm3 MPV 10.0 (7.5-11.0) fl Gran % (36.0-66.0) % Eos # (Auto) (0-0.5) Absolute Lymphs (auto) (1.0-4.6) Absolute Monos (auto) (0.0-1.3) Lymphocytes % (24.0-44.0) % Monocytes % (0.0-12.0) % Eosinophils % (0.00-5.0) % Basophils % (0.0-0.4) % Absolute Granulocytes (1.4-6.9) Segmented Neutrophils 78 H (36.0-66.0) % Band Neutrophils 1 (0.0-2.0) % Lymphocytes (Manual) 13 L (24-44) % Monocytes (Manual) 7 (0.0-12.0) % Eosinophils (Manual) 1 (0.00-3.0) % Basophils # (0-0.4) Platelet Estimate NORMAL (NORMAL) RBC Morphology ABNORMAL Anisocytosis 1+ D-Dimer (215-500) ng/mL Sodium 138 (137-145) mmol/L Potassium 4.0 (3.5-5.1) mmol/L Chloride 104 (98-107) mmol/L Carbon Dioxide 24 (22-30) mmol/L Anion Gap 14.1 (5-15) MEQ/L BUN 19 H (7-17) mg/dL Creatinine 1.03 (0.52-1.04) mg/dL Estimated GFR 58.3 ML/MIN Glucose 101 (74-106) mg/dL Calcium 9.2 (8.4-10.2) mg/dL Total Bilirubin 0.50 (0.2-1.3) mg/dL AST 23 (14-36) U/L ALT 20 (0-35) U/L Alkaline Phosphatase 122 (38-126) U/L Troponin I (0.000-0.034) ng/mL NT-Pro-B Natriuret Pep (0-900) pg/mL Serum Total Protein 6.7 (6.3-8.2) g/dL Albumin 3.8 (3.5-5.0) g/dL TSH 3rd Generation (0.47-4.68) mIU/L Influenza Type A Ag (NEGATIVE) Influenza Type B Ag (NEGATIVE) RSV (PCR) (Negative) SARS-CoV-2 (PCR) (NEGATIVE) - Radiology Impressions Radiology Exams & Impressions: Radiology Procedures Category Date Time Status CHEST WITH CONTRAST [CT] Stat Exams 08/15/21 15:59 Completed Assessment/Plan (1) Pulmonary embolism Current Visit: Yes Status: Acute Qualifiers: Pulmonary embolism type: single subsegmental (without acute cor pulmonale) Qualified Code(s): I26.93 - Single subsegmental pulmonary embolism without acute cor pulmonale Assessment & Plan: Would plan Eliquis for at least 3 mo; f/u with hematology in that time. Code(s): I26.99 - OTHER PULMONARY EMBOLISM WITHOUT ACUTE COR PULMONALE (2) Thoracic back pain Current Visit: Yes Status: Acute Qualifiers: Chronicity: acute Back pain laterality: bilateral Qualified Code(s): M54.6 - Pain in thoracic spine Assessment & Plan: Could be related to PE, or MSK. Trying flexeril. Code(s): M54.6 - PAIN IN THORACIC SPINE (3) Headache Current Visit: Yes Status: Acute Qualifiers: Headache type: tension-type Assessment & Plan: could be tension, v sinus. Also, doing CT to f/o intracranial pathology, with her recent fatigue and lightheadedness. Code(s): R51.9 - HEADACHE, UNSPECIFIED (4) Sinusitis Current Visit: Yes Status: Acute Qualifiers: Sinusitis location: frontal Chronicity: acute Recurrence: non-recurrent Qualified Code(s): J01.10 - Acute frontal sinusitis, unspecified Assessment & Plan: rocephin today; will send her home on cefdinir to finish total 10d. Code(s): J32.9 - CHRONIC SINUSITIS, UNSPECIFIED Hospital Summary - Hospital Course Hospital Course: Pt admitted through ER with PE. Also treated for sinusitis. Muscle relaxer given, and rocephin IV for sinus infection. PE thought to be unprovoked; started on lovenox in ER and this morning changed to Eliquis 10mg po BID x 7d, f ollowed by 5mg po BID. Will have her f/u with DR. Obando outpatient as well, sometime in the next [address] chest with tiny PE in RUL, nonoccluding. Will check UA. Treat for possible sinusitis. ESR and TSH pending. She has frequent nausea and a recent bought of constipation, so will discuss EGD and colonoscopy outpatient. - Vitals & Intake/Output Vital Signs: Vital Signs Temperature 98.4 F 08/16/21 07:57 Pulse Rate 92 H 08/16/21 07:57 Respiratory Rate 19 08/16/21 08:00 Blood Pressure 121/65 08/16/21 07:57 O2 Sat by Pulse Oximetry 94 L 08/16/21 07:57 Intake & Output: Intake & Output 08/13/21 08/14/21 08/15/21 08/16/21 11:59 11:59 11:59 11:59 Intake Total 2001 Output Total 1200 Balance 802 Weight 88.4 kg - Lab Result Diagrams: 08/16/21 04:02 08/16/21 04:02 Lab Results-Last 24 Hrs: Lab Results-Last 24 Hours 08/15/21 08/15/21 08/15/21 Range/Units 15:19 15:19 15:19 WBC 11.0 H (4.0-10.5) K/mm3 RBC 4.23 (4.1-5.4) M/mm3 Hgb 11.9 L (12.0-16.0) gm/dl Hct 37.7 (35-47) % MCV 89.1 (78-100) fl MCH 28.1 (26-32) pg MCHC 31.6 L (32-36) g/dl RDW 15.2 H (11.5-14.0) % Plt Count 284 (150-450) K/mm3 MPV 9.5 (7.5-11.0) fl Gran % 88.6 H (36.0-66.0) % Eos # (Auto) 0.10 (0-0.5) Absolute Lymphs (auto) 0.83 L (1.0-4.6) Absolute Monos (auto) 0.31 (0.0-1.3) Lymphocytes % 7.5 L (24.0-44.0) % Monocytes % 2.8 (0.0-12.0) % Eosinophils % 0.9 (0.00-5.0) % Basophils % 0.2 (0.0-0.4) % Absolute Granulocytes 9.76 H (1.4-6.9) Segmented Neutrophils (36.0-66.0) % Band Neutrophils (0.0-2.0) % Lymphocytes (Manual) (24-44) % Monocytes (Manual) (0.0-12.0) % Eosinophils (Manual) (0.00-3.0) % Basophils # 0.02 (0-0.4) Platelet Estimate (NORMAL) RBC Morphology Anisocytosis D-Dimer 4299 H* (215-500) ng/mL Sodium 135 L (137-145) mmol/L Potassium 4.3 (3.5-5.1) mmol/L Chloride 99 (98-107) mmol/L Carbon Dioxide 28 (22-30) mmol/L Anion Gap 12.8 (5-15) MEQ/L BUN 19 H (7-17) mg/dL Creatinine 1.03 (0.52-1.04) mg/dL Estimated GFR 58.3 ML/MIN Glucose 146 H (74-106) mg/dL Calcium 9.7 (8.4-10.2) mg/dL Total Bilirubin 0.50 (0.2-1.3) mg/dL AST 22 (14-36) U/L ALT 19 (0-35) U/L Alkaline Phosphatase 131 H (38-126) U/L Troponin I (0.000-0.034) ng/mL NT-Pro-B Natriuret Pep 279 (0-900) pg/mL Serum Total Protein 6.9 (6.3-8.2) g/dL Albumin 4.1 (3.5-5.0) g/dL TSH 3rd Generation 0.963 (0.47-4.68) mIU/L Influenza Type A Ag (NEGATIVE) Influenza Type B Ag (NEGATIVE) RSV (PCR) (Negative) SARS-CoV-2 (PCR) (NEGATIVE) 08/15/21 08/15/21 08/15/21 Range/Units 15:30 17:51 18:27 WBC (4.0-10.5) K/mm3 RBC (4.1-5.4) M/mm3 Hgb (12.0-16.0) gm/dl Hct (35-47) % MCV (78-100) fl MCH (26-32) pg MCHC (32-36) g/dl RDW (11.5-14.0) % Plt Count (150-450) K/mm3 MPV (7.5-11.0) fl Gran % (36.0-66.0) % Eos # (Auto) (0-0.5) Absolute Lymphs (auto) (1.0-4.6) Absolute Monos (auto) (0.0-1.3) Lymphocytes % (24.0-44.0) % Monocytes % (0.0-12.0) % Eosinophils % (0.00-5.0) % Basophils % (0.0-0.4) % Absolute Granulocytes (1.4-6.9) Segmented Neutrophils (36.0-66.0) % Band Neutrophils (0.0-2.0) % Lymphocytes (Manual) (24-44) % Monocytes (Manual) (0.0-12.0) % Eosinophils (Manual) (0.00-3.0) % Basophils # (0-0.4) Platelet Estimate (NORMAL) RBC Morphology Anisocytosis D-Dimer (215-500) ng/mL Sodium (137-145) mmol/L Potassium (3.5-5.1) mmol/L Chloride (98-107) mmol/L Carbon Dioxide (22-30) mmol/L Anion Gap (5-15) MEQ/L BUN (7-17) mg/dL Creatinine (0.52-1.04) mg/dL Estimated GFR ML/MIN Glucose (74-106) mg/dL Calcium (8.4-10.2) mg/dL Total Bilirubin (0.2-1.3) mg/dL AST (14-36) U/L ALT (0-35) U/L Alkaline Phosphatase (38-126) U/L Troponin I < 0.012 < 0.012 (0.000-0.034) ng/mL NT-Pro-B Natriuret Pep (0-900) pg/mL Serum Total Protein (6.3-8.2) g/dL Albumin (3.5-5.0) g/dL TSH 3rd Generation (0.47-4.68) mIU/L Influenza Type A Ag NEGATIVE (NEGATIVE) Influenza Type B Ag NEGATIVE (NEGATIVE) RSV (PCR) NEGATIVE (Negative) SARS-CoV-2 (PCR) NEGATIVE (NEGATIVE) 08/15/21 08/16/21 08/16/21 Range/Units 21:20 01:33 04:02 WBC (4.0-10.5) K/mm3 RBC (4.1-5.4) M/mm3 Hgb (12.0-16.0) gm/dl Hct (35-47) % MCV (78-100) fl MCH (26-32) pg MCHC (32-36) g/dl RDW (11.5-14.0) % Plt Count (150-450) K/mm3 MPV (7.5-11.0) fl Gran % (36.0-66.0) % Eos # (Auto) (0-0.5) Absolute Lymphs (auto) (1.0-4.6) Absolute Monos (auto) (0.0-1.3) Lymphocytes % (24.0-44.0) % Monocytes % (0.0-12.0) % Eosinophils % (0.00-5.0) % Basophils % (0.0-0.4) % Absolute Granulocytes (1.4-6.9) Segmented Neutrophils (36.0-66.0) % Band Neutrophils (0.0-2.0) % Lymphocytes (Manual) (24-44) % Monocytes (Manual) (0.0-12.0) % Eosinophils (Manual) (0.00-3.0) % Basophils # (0-0.4) Platelet Estimate (NORMAL) RBC Morphology Anisocytosis D-Dimer (215-500) ng/mL Sodium (137-145) mmol/L Potassium (3.5-5.1) mmol/L Chloride (98-107) mmol/L Carbon Dioxide (22-30) mmol/L Anion Gap (5-15) MEQ/L BUN (7-17) mg/dL Creatinine (0.52-1.04) mg/dL Estimated GFR ML/MIN Glucose (74-106) mg/dL Calcium (8.4-10.2) mg/dL Total Bilirubin (0.2-1.3) mg/dL AST (14-36) U/L ALT (0-35) U/L Alkaline Phosphatase (38-126) U/L Troponin I < 0.012 < 0.012 < 0.012 (0.000-0.034) ng/mL NT-Pro-B Natriuret Pep (0-900) pg/mL Serum Total Protein (6.3-8.2) g/dL Albumin (3.5-5.0) g/dL TSH 3rd Generation (0.47-4.68) mIU/L Influenza Type A Ag (NEGATIVE) Influenza Type B Ag (NEGATIVE) RSV (PCR) (Negative) SARS-CoV-2 (PCR) (NEGATIVE) 08/16/21 08/16/21 Range/Units 04:02 04:02 WBC 15.5 H (4.0-10.5) K/mm3 RBC 4.05 L (4.1-5.4) M/mm3 Hgb 11.4 L (12.0-16.0) gm/dl Hct 36.8 (35-47) % MCV 90.9 (78-100) fl MCH 28.1 (26-32) pg MCHC 31.0 L (32-36) g/dl RDW 15.5 H (11.5-14.0) % Plt Count 284 (150-450) K/mm3 MPV 10.0 (7.5-11.0) fl Gran % (36.0-66.0) % Eos # (Auto) (0-0.5) Absolute Lymphs (auto) (1.0-4.6) Absolute Monos (auto) (0.0-1.3) Lymphocytes % (24.0-44.0) % Monocytes % (0.0-12.0) % Eosinophils % (0.00-5.0) % Basophils % (0.0-0.4) % Absolute Granulocytes (1.4-6.9) Segmented Neutrophils 78 H (36.0-66.0) % Band Neutrophils 1 (0.0-2.0) % Lymphocytes (Manual) 13 L (24-44) % Monocytes (Manual) 7 (0.0-12.0) % Eosinophils (Manual) 1 (0.00-3.0) % Basophils # (0-0.4) Platelet Estimate NORMAL (NORMAL) RBC Morphology ABNORMAL Anisocytosis 1+ D-Dimer (215-500) ng/mL Sodium 138 (137-145) mmol/L Potassium 4.0 (3.5-5.1) mmol/L Chloride 104 (98-107) mmol/L Carbon Dioxide 24 (22-30) mmol/L Anion Gap 14.1 (5-15) MEQ/L BUN 19 H (7-17) mg/dL Creatinine 1.03 (0.52-1.04) mg/dL Estimated GFR 58.3 ML/MIN Glucose 101 (74-106) mg/dL Calcium 9.2 (8.4-10.2) mg/dL Total Bilirubin 0.50 (0.2-1.3) mg/dL AST 23 (14-36) U/L ALT 20 (0-35) U/L Alkaline Phosphatase 122 (38-126) U/L Troponin I (0.000-0.034) ng/mL NT-Pro-B Natriuret Pep (0-900) pg/mL Serum Total Protein 6.7 (6.3-8.2) g/dL Albumin 3.8 (3.5-5.0) g/dL TSH 3rd Generation (0.47-4.68) mIU/L Influenza Type A Ag (NEGATIVE) Influenza Type B Ag (NEGATIVE) RSV (PCR) (Negative) SARS-CoV-2 (PCR) (NEGATIVE) - Radiology Exams Ordered Rad Exams-Entire Visit: Radiology Procedures Category Date Time Status CHEST WITH CONTRAST [CT] Stat Exams 08/15/21 15:59 Completed - Discharge Disposition: Home, Self-Care Condition: Stable Prescriptions: New Cyclobenzaprine HCl 10 mg [Cyclobenzaprine 10 MG] 10 mg PO TID PRN PRN #15 tablet PRN Reason: Muscle Spasms Apixaban [Eliquis 5 mg Tablet] 10 mg PO BID #13 tablet Cefdinir [Omnicef 300 mg] 300 mg PO BID #18 Continue Cholecalciferol (Vitamin D3) [Vitamin D3] 5,000 unit PO DAILY Omeprazole [Prilosec] 20 mg PO QHS Citalopram Hydrobromide [ceLEXa] 40 mg PO DAILY Imipramine HCl [Tofranil] 50 mg PO QHS Promethazine HCl 25 mg [Phenergan 25 mg] 25 mg PO Q4H PRN PRN #14 tablet PRN Reason: Nausea/Vomiting Losartan Potassium 50 mg [Cozaar 50 MG] 50 mg PO DAILY Nebivolol HCl 5 MG [Bystolic 5 MG] 5 mg PO QHS Follow up with: MELL FISH [Primary Care Provider] -
[2021-08-16 09:37] LABS: Appearance SLIGHTLY CLOUDY (CLEAR); Bilirubin NEGATIVE (NEGATIVE); Glucose NEGATIVE (NEGATIVE)
[2021-08-16 09:38] LABS: Ketones NEGATIVE (NEGATIVE); Nitrite POSITIVE (NEGATIVE); Protein,Urine Dip TRACE (Negative); RBC LARGE Ery/ul (0-5); Specific Gravity 1.015 (1.005-1.025); Urobilinogen 0.2 mg/dL (0-1)
[2021-08-16 09:39] LABS: Dipstick done @ ? MAIN LAB
[2021-08-16 09:41] LABS: Bacteria FEW /HPF (NEGATIVE); Epithelial Cells FEW /HPF (FEW); RBC 26-50 /HPF (0-2)
[2021-08-16] MEDS ORDERED: Cozaar 50 MG PO SCH (10:00)
[2021-08-16] MEDS ORDERED: ROCEPHIN 1 Gm-D5w 50 ml Bag** 1 G/50 ML IVPB IV SCH (10:00)
[2021-08-16] MEDS ORDERED: ceLEXa 20 MG PO SCH (10:00)
[2021-08-16] MEDS ORDERED: ELIQUIS 2.5 MG TABLET PO SCH (10:00)
--- NOTE | 2021-08-16 10:12 | XRAY ---
Indication: Frontal headache. Multiple contiguous axial images obtained through the head without contrast. Comparison: None Ventriculosulcal pattern appears symmetric. No acute intracranial hemorrhage, abnormal extra-axial fluid collection, or mass effect. Fourth ventricle is midline without hydrocephalus. Min-white matter differentiation preserved. Bony calvarium intact. Paranasal sinuses and mastoid air cells are clear. Impression: Negative CT head without contrast exam.
[2021-08-16] MEDS ORDERED: TYLENOL 325 MG PO PRN (10:37)
[2021-08-16 19:53] LABS: Urine Cultured Indicated? YES
[2021-08-16] MEDS ORDERED: IMIPRAMINE HCL 50 MG PO SCH (22:00)
[2021-08-16] MEDS ORDERED: Protonix 40MG Tablet PO SCH ×2 (22:00)
[2021-08-16] MEDS ORDERED: Bystolic 5 MG PO SCH ×2 (22:00)
== END 2021-08-16 11:38 | disposition home or self-care (01) ==
LOC: ED 14:58 → MED SURG 20:13
PROVIDERS: ADMIT Family Medicine; ATTEND Family Medicine
DX: I26.93 Single subsegmental thrombotic pulmonary embolism without acute cor pulmonale (principal); M54.6 Pain in thoracic spine; R51.9 Headache, unspecified; J01.10 Acute frontal sinusitis, unspecified; K21.9 Gastro-esophageal reflux disease without esophagitis; F41.9 Anxiety disorder, unspecified; I10 Essential (primary) hypertension; Z79.01 Long term (current) use of anticoagulants; Z79.899 Other long term (current) drug therapy; Z20.828 Contact with and (suspected) exposure to other viral communicable diseases
CPT/HCPCS: 0241U; 36000; 36415; 70450; 71260; 80053; 81015; 83880; 84443; 84484; 85025; 85379; 87077; 87086; 87186; 93005; 93041; 93268; 94762; 96372; 96374; 99285; G0378; J0696; J1650; J1885; A9270-GY